=== PATIENT | female | born 1950 | race Caucasian/White ===

== ENCOUNTER → 2016-09-17 | Outpatient (CLI) | payer OTHER ==
[~2016-09-17] MED LIST: IBUPROFEN400 MG PO; NIACIN250 M1 PO; OMEPRAZOLE20 M2 PO; PREMPRO 0.625-21 TAB PO
== END | disposition home or self-care (01) ==
LOC: CECH 12:30
DX: I51.7 Cardiomegaly (principal)
CPT/HCPCS: 93306

== ENCOUNTER → 2016-10-29 | Outpatient (CLI) | payer OTHER ==
--- NOTE | ~2016-10-29 | US6 ---
[facility] A Service of [facility] & [facility] RADIOLOGY TEXT RESULTS PATIENT: CHASE DIGGS LOCATION: [facility] : 54 UNIT #: [id number] AGE: [address]: Sofi Crouch APRN SEX: F ORDER DR: [id number] [facility] [address] [place], [place] [address] [id number] O MR#: [id number] Acc #: [id number] NAME: CHASE DIGGS : 1950 SEX: F STUDY DATE/TIME: 10/29/2016 9:35 UNIT: [facility] ROOM: STUDY DESCRIPTION: US Abdominal Limited Attending Physician: Sofi Crouch A.P.R.N. Referring Physician: Sofi Crouch A.P.R.N. Ordering Physician: Sofi Crouch A.P.R.N. Primary Care Physician: Sofi Crouch A.P.R.N. MEDICAL IMAGING REPORT This report is preliminary unless electronic signature is present EXAM Right upper quadrant ultrasound, 10/29/2016. HISTORY Abnormally elevated liver enzymes on labs drawn 2 months ago. FINDINGS The liver demonstrates an increase in echotexture with attenuation of the ultrasound beam characteristic of fatty infiltration. No cystic or solid mass lesions were seen in the liver. The intra and extrahepatic bile ducts are not dilated. The gallbladder is surgically absent as per patient history. The common duct measures 5 mm. The pancreas and right kidney are normal. IMPRESSION 1. Fatty infiltration of the liver. 2. Surgical absence of the gallbladder. Dictated by... Brock Rubalcava M.D. THIS IS AN ELECTRONICALLY VERIFIED REPORT Brock Rubalcava M.D. at 10/30/2016 3:48 PM COLE/arnold TD: 10/30/2016 13:27 JOB #: [id number] MEDICAL IMAGING REPORT Page 1 of 1 COPY
== END | disposition home or self-care (01) ==
LOC: CGUS 08:27
DX: R74.8 Abnormal levels of other serum enzymes (principal); K76.0 Fatty (change of) liver, not elsewhere classified; Z90.49 Acquired absence of other specified parts of digestive tract
CPT/HCPCS: 76705